=== PATIENT | male | born 1955 | race Caucasian/White ===

== ENCOUNTER 2017-04-26 16:51 | Day surgery (SDC) | payer BC ==
[~2017-04-26] VITALS: Ht 177.8 cm; Wt 124.0 kg
[2017-04-26 17:28] VITALS: BP 142/77
[2017-04-26 17:38] LABS: POINT-OF-CARE METER ID UU14174212
[2017-04-26] MEDS ORDERED: NORVASC10 MG PO (18:07)
[2017-04-26] MEDS ORDERED: ST. JOSEPH ASPI81 MG PO (18:08)
[2017-04-26] MEDS ORDERED: LUMIGAN 0.50 DROP/22 LEFT EYE (18:09)
[2017-04-26] MEDS ORDERED: COMBIGAN O20 DROP/5 LEFT EYE (18:11)
[2017-04-26] MEDS ORDERED: LOTEMAX5 GM LEFT EYE (18:12)
[2017-04-26] MEDS ORDERED: TRUSOPT 2%200 DROP/2 LEFT EYE (18:12)
[2017-04-26] MEDS ORDERED: METOPROLOL SUCC25 MG PO (18:13)
[2017-04-26] MEDS ORDERED: GLUCOPHAGE1000 MG PO (18:13)
[2017-04-26] MEDS ORDERED: PRAVACHOL20 MG PO (18:13)
[2017-04-26] MEDS ORDERED: DIOVAN320 MG PO (18:14)
[2017-04-26 18:54] LABS: POINT-OF-CARE METER ID UU13113675
[2017-04-26 19:15] VITALS: BP 149/79
== END 2017-04-26 19:35 | disposition home or self-care (01) ==
LOC: SDC 16:51
PROVIDERS: Ophthalmology
DX: H40.832 Aqueous misdirection, left eye (principal); H43.392 Other vitreous opacities, left eye; H35.372 Puckering of macula, left eye; E11.319 Type 2 diabetes mellitus with unspecified diabetic retinopathy without macular edema; Z79.84 Long term (current) use of oral hypoglycemic drugs; I10 Essential (primary) hypertension; G47.33 Obstructive sleep apnea (adult) (pediatric)
CPT/HCPCS: 82948; 93005; J0690; J1100; J1120; J1885; J2250; J2795; J3010